=== PATIENT | male | born 1960 | race Caucasian/White ===

== ENCOUNTER 2020-05-21 09:02 | Outpatient (REF) | payer OTHER, SELFPAY | END 2020-05-21 09:03 | disposition home or self-care (01) | LOC: HO.MANLNP 09:02 | PROVIDERS: PCP Internal Medicine; Visit Provider Internal Medicine | DX: Z20.822 Contact with and (suspected) exposure to COVID-19 (principal) | CPT/HCPCS: 36415; U0003 ==

== ENCOUNTER 2020-12-03 13:30 | Outpatient (REF) | payer OTHER, SELFPAY ==
[2020-12-03 18:05] LABS: MANUAL DIFF FLAG NO
[2020-12-03 18:09] LABS: Basophils Percent Auto 0.5 % (0-2); Eosinophils Absolute Auto 0.1 X10*3/uL (0.0-0.4); Eosinophils Percent Auto 0.9 % (0-4); Hematocrit 48.9 % (42-52); Imm Gran Abs Auto 0.02 X10*3/uL (0.00-0.03); Imm Gran Pct Auto 0.3 % (0.0-0.4); Lymphocytes Absolute Auto 1.2 X10*3/uL (1.2-4.9); Lymphocytes Percent Auto 14.5 % (20-40); Mean Corpuscular HGB Conc 32.7 g/dl (31.0-36.0); Mean Corpuscular Hemoglobin 30.7 pg (27.0-33.0); Mean Corpuscular Volume 93.9 fL (80-98); Monocytes Absolute Auto 0.6 X10*3/uL (0.1-1.2); Monocytes Percent Auto 7.7 % (2-11); Neutrophils Percent Auto 76.1 % (45-73); Platelet Count 178 X10*3/uL (160-400); Red Blood Count 5.21 X10*6/uL (4.60-5.80); Red Cell Distribution Width 12.9 % (11.0-16.0); White Blood Count 7.9 X10*3/uL (4.8-10.8)
[2020-12-03 18:24] LABS: Alanine Aminotransferase 33 U/L (0-40); Albumin Level 4.2 g/dL (3.5-5.0); Alkaline Phosphatase 45 U/L (39-117); Anion Gap 11 (12-20); Aspartate Amino Transferase 30 U/L (5-37); Bilirubin Total 0.7 mg/dL (0.0-1.0); Blood Urea Nitrogen 7 mg/dL (9-16); Calcium 9.7 mg/dL (8.4-10.2); Carbon Dioxide 30 mmol/L (22-29); Chloride 102 mmol/L (96-108); Estimated Glomerular Filt Rate > 60; Glucose Random 113 mg/dL (60-115); Potassium 4.4 mmol/L (3.3-5.1); Sodium 139 mmol/L (135-145); Total Protein 6.4 g/dL (6.5-8.0)
[2020-12-03 18:46] LABS: Thyroid Stimulating Hormone 1.66 uIU/mL (0.32-4.0)
[2020-12-03 18:53] LABS: Vitamin B12 775 pg/mL (200-900)
[2020-12-03 19:06] LABS: Erythrocyte Sedimentation Rate 2 MM/HR (0-15)
[2020-12-05 15:12] LABS: Lyme Abs Screen <0.90 index
[2020-12-05 19:05] LABS: EBV-VCA IgG Ab >750.00 U/mL; EBV-VCA IgM Ab <36.00 U/mL
[2020-12-10 01:31] LABS: Testosterone, Total 1715 ng/dL (250-1100)
== END 2020-12-03 13:31 | disposition home or self-care (01) ==
LOC: HO.MANLDS 13:30
PROVIDERS: PCP Internal Medicine; Visit Provider Internal Medicine
DX: R53.83 Other fatigue (principal)
CPT/HCPCS: 36415; 80053; 82607; 84403; 84443; 85025; 85652; 86617; 86618; 86664; 86665

== ENCOUNTER 2021-08-19 11:15 | Outpatient (REF) | payer OTHER, SELFPAY ==
[2021-08-19 12:39] LABS: MANUAL DIFF FLAG NO
[2021-08-19 12:45] LABS: Basophils Absolute Auto 0.1 X10*3/uL (0.0-0.2); Eosinophils Absolute Auto 0.1 X10*3/uL (0.0-0.4); Eosinophils Percent Auto 1.1 % (0-4); Hematocrit 49.6 % (42.0-52.0); Hemoglobin 16.6 g/dl (14.0-18.0); Imm Gran Abs Auto 0.02 X10*3/uL (0.00-0.03); Imm Gran Pct Auto 0.3 % (0.0-0.4); Lymphocytes Absolute Auto 1.4 X10*3/uL (1.2-4.9); Lymphocytes Percent Auto 22.2 % (20-40); Mean Corpuscular HGB Conc 33.5 g/dl (31.0-36.0); Mean Corpuscular Hemoglobin 30.9 pg (27.0-33.0); Mean Corpuscular Volume 92.4 fL (80.0-98.0); Mean Platelet Volume 11.4 fL (9.4-12.4); Monocytes Absolute Auto 0.8 X10*3/uL (0.1-1.2); Monocytes Percent Auto 12.4 % (2-11); Platelet Count 194 X10*3/uL (160-400); Red Blood Count 5.37 X10*6/uL (4.60-5.80); Red Cell Distribution Width 13.5 % (11.0-16.0); White Blood Count 6.3 X10*3/uL (4.8-10.8)
[2021-08-19 13:23] LABS: Erythrocyte Sedimentation Rate 1 MM/HR (0-15)
[2021-08-19 13:27] LABS: C Reactive Protein 0.08 mg/dL (< or = 0.50)
[2021-08-19 13:52] LABS: Vitamin D 25-OH Total 24.6 ng/mL (>30)
== END 2021-08-19 11:16 | disposition home or self-care (01) ==
LOC: HO.MANLDS 11:15
PROVIDERS: PCP Physician Assistant; Visit Provider Physician Assistant
DX: U09.9 Post COVID-19 condition, unspecified (principal)
CPT/HCPCS: 36415; 82306; 85025; 85652; 86140

== ENCOUNTER 2021-10-29 10:23 | Outpatient (REF) | payer OTHER, SELFPAY ==
--- NOTE | ~2021-10-29 | XR_ITS ---
EXAMINATION: XR CHEST CLINICAL INFORMATION: Chest pain COMPARISON: None TECHNIQUE: 2 views of the chest were obtained. FINDINGS: The cardiac and mediastinal contours are normal. The lung volumes are low. There is subsegmental atelectasis at the right lung base. The lungs are otherwise clear. There is no pleural effusion or pneumothorax. There are degenerative changes of the spine. XR/XR chest 2V IMPRESSION: Low lung volumes and subsegmental atelectasis at the right lung base.
== END 2021-10-29 10:24 | disposition home or self-care (01) ==
LOC: HO.XRAY 10:23
PROVIDERS: Visit Provider Physician Assistant
DX: R07.9 Chest pain, unspecified (principal)
CPT/HCPCS: 71046

== ENCOUNTER 2021-11-20 09:12 | Outpatient (REF) | payer OTHER, SELFPAY ==
[2021-11-20 11:22] LABS: Estimated Average Glucose 105 mg/dL; Hemoglobin A1C 149.1034 umol/L; Hemoglobin A1c % 5.3 %
[2021-11-20 11:46] LABS: Alanine Aminotransferase 34 U/L (0-40); Albumin Level 4.1 g/dL (3.5-5.0); Alkaline Phosphatase 42 U/L (39-117); Anion Gap 11 (12-20); Aspartate Amino Transferase 29 U/L (5-37); Bilirubin Total 0.3 mg/dL (0.0-1.0); Blood Urea Nitrogen 9 mg/dL (9-16); Calcium 8.8 mg/dL (8.4-10.2); Carbon Dioxide 29 mmol/L (22-29); Chloride 102 mmol/L (96-108); Cholesterol 130 mg/dL; Estimated Glomerular Filt Rate > 60; Glucose Fasting 107 mg/dL (60-99); HDL Cholesterol 49 mg/dL; LDL Cholesterol Calculated 74 mg/dl; Sodium 138 mmol/L (135-145); Total Protein 6.1 g/dL (6.5-8.0); Triglycerides 39 mg/dL
[2021-11-28 15:17] LABS: Lipoprotein A 16 nmol/L (<75)
== END 2021-11-20 09:13 | disposition home or self-care (01) ==
LOC: HO.MANLDS 09:12
PROVIDERS: Visit Provider Internal Medicine
DX: E78.00 Pure hypercholesterolemia, unspecified (principal); R73.9 Hyperglycemia, unspecified
CPT/HCPCS: 36415; 80053; 80061; 83036; 83695

== ENCOUNTER 2022-05-24 16:03 | Outpatient (REF) | payer OTHER, SELFPAY ==
[2022-05-24 19:01] LABS: Cholesterol 121 mg/dL; HDL Cholesterol 45 mg/dL; LDL Cholesterol Calculated 59 mg/dl; Triglycerides 85 mg/dL
[2022-05-27 05:18] LABS: LDL Cholesterol Direct 65 mg/dL (<100)
[2022-05-31 14:09] LABS: Kappa, Serum 178 mg/dL (176-443); Kappa/Lambda Ratio, Serum 2.83 (1.29-2.55); Lambda, Serum 63 mg/dL (91-240)
[2022-06-01 10:13] LABS: IgA 148 mg/dL (70-320); IgG 774 mg/dL (600-1540); IgM 50 mg/dL (50-300)
== END 2022-05-24 16:04 | disposition home or self-care (01) ==
LOC: HO.MANLDS 16:03
PROVIDERS: Visit Provider Internal Medicine
DX: E78.5 Hyperlipidemia, unspecified (principal)
CPT/HCPCS: 80061; 82784; 83721; 83883; 86334; 86335

== ENCOUNTER 2022-10-12 09:34 | Outpatient (REF) | payer OTHER, SELFPAY ==
[2022-10-12 12:11] LABS: Alanine Aminotransferase 25 U/L (0-40); Alkaline Phosphatase 36 U/L (39-117); Anion Gap 10 (12-20); Aspartate Amino Transferase 27 U/L (5-37); Bilirubin Total 0.8 mg/dL (0.0-1.0); Blood Urea Nitrogen 12 mg/dL (9-16); Calcium 9.5 mg/dL (8.4-10.2); Carbon Dioxide 31 mmol/L (22-29); Chloride 102 mmol/L (96-108); Cholesterol 108 mg/dL; Estimated Glomerular Filt Rate > 60; Glucose Random 89 mg/dL (60-115); HDL Cholesterol 42 mg/dL; LDL Cholesterol Calculated 51 mg/dl; Potassium 4.1 mmol/L (3.3-5.1); Sodium 139 mmol/L (135-145); Triglycerides 75 mg/dL
[2022-10-12 12:12] LABS: Prostate Specific Antigen 1.51 ng/mL (<0.05-4.0)
[2022-10-17 12:39] LABS: Testosterone, Total 998 ng/dL (250-1100)
== END 2022-10-12 09:35 | disposition home or self-care (01) ==
LOC: HO.MANLDS 09:34
PROVIDERS: Visit Provider Internal Medicine
DX: Z12.5 Encounter for screening for malignant neoplasm of prostate (principal); E78.00 Pure hypercholesterolemia, unspecified; N40.1 Benign prostatic hyperplasia with lower urinary tract symptoms; R79.89 Other specified abnormal findings of blood chemistry
CPT/HCPCS: 36415; 80053; 80061; 84153; 84403

== ENCOUNTER 2023-07-11 09:54 | Outpatient (REF) | payer OTHER, SELFPAY ==
[2023-07-11 13:55] LABS: MANUAL DIFF FLAG NO
[2023-07-11 14:05] LABS: Basophils Percent Auto 0.5 % (0-2); Eosinophils Absolute Auto 0.1 X10*3/uL (0.0-0.4); Eosinophils Percent Auto 0.8 % (0-4); Hematocrit 46.3 % (42.0-52.0); Hemoglobin 15.7 g/dl (14.0-18.0); Imm Gran Abs Auto 0.02 X10*3/uL (0.00-0.03); Imm Gran Pct Auto 0.2 % (0.0-0.4); Lymphocytes Absolute Auto 0.8 X10*3/uL (1.2-4.9); Lymphocytes Percent Auto 9.8 % (20-40); Mean Corpuscular HGB Conc 33.9 g/dl (31.0-36.0); Mean Corpuscular Hemoglobin 30.7 pg (27.0-33.0); Mean Corpuscular Volume 90.4 fL (80.0-98.0); Mean Platelet Volume 11.4 fL (9.4-12.4); Monocytes Absolute Auto 0.9 X10*3/uL (0.1-1.2); Monocytes Percent Auto 10.6 % (2-11); Neutrophils Absolute Auto 6.6 x10*3/uL (2.0-8.3); Neutrophils Percent Auto 78.1 % (45-73); Platelet Count 182 X10*3/uL (160-400); Red Blood Count 5.12 X10*6/uL (4.60-5.80); White Blood Count 8.5 X10*3/uL (4.8-10.8)
[2023-07-11 14:22] LABS: Alanine Aminotransferase 25 U/L (0-40); Alkaline Phosphatase 46 U/L (39-117); Anion Gap 11 (12-20); Aspartate Amino Transferase 28 U/L (5-37); Bilirubin Total 0.4 mg/dL (0.0-1.0); Blood Urea Nitrogen 15 mg/dL (9-16); C Reactive Protein 0.42 mg/dL (< or = 0.50); Calcium 9.6 mg/dL (8.4-10.2); Carbon Dioxide 33 mmol/L (22-29); Chloride 98 mmol/L (96-108); Estimated Glomerular Filt Rate > 60; Glucose Random 86 mg/dL (60-115); Potassium 3.7 mmol/L (3.3-5.1); Sodium 138 mmol/L (135-145); Total Protein 6.5 g/dL (6.5-8.0)
[2023-07-11 14:36] LABS: Vitamin D 25-OH Total 54.1 ng/mL (>30)
[2023-07-11 14:38] LABS: Prostate Specific Antigen 1.52 ng/mL (<0.05-4.0); Vitamin B12 1026 pg/mL (200-900)
[2023-07-11 14:39] LABS: Erythrocyte Sedimentation Rate 4 MM/HR (0-15)
[2023-07-16 10:53] LABS: Testosterone, Total 501 ng/dL (250-1100)
== END 2023-07-11 09:55 | disposition home or self-care (01) ==
LOC: HO.MANLDS 09:54
PROVIDERS: Visit Provider Internal Medicine
DX: Z12.5 Encounter for screening for malignant neoplasm of prostate (principal); I10 Essential (primary) hypertension; R79.89 Other specified abnormal findings of blood chemistry; E55.9 Vitamin D deficiency, unspecified; T46.6X5D Adverse effect of antihyperlipidemic and antiarteriosclerotic drugs, subsequent encounter
CPT/HCPCS: 36415; 80053; 82306; 82550; 82607; 84153; 84403; 85025; 85652; 86140

== ENCOUNTER 2023-12-09 12:31 | Outpatient (REF) | payer OTHER, SELFPAY ==
[2023-12-09 17:32] LABS: MANUAL DIFF FLAG NO
[2023-12-09 17:45] LABS: Basophils Absolute Auto 0.1 X10*3/uL (0.0-0.2); Basophils Percent Auto 0.8 % (0-2); Eosinophils Percent Auto 0.2 % (0-4); Hematocrit 48.2 % (42.0-52.0); Hemoglobin 16.5 g/dl (14.0-18.0); Imm Gran Abs Auto 0.02 X10*3/uL (0.00-0.03); Imm Gran Pct Auto 0.3 % (0.0-0.4); Lymphocytes Absolute Auto 0.9 X10*3/uL (1.2-4.9); Lymphocytes Percent Auto 13.7 % (20-40); Mean Corpuscular HGB Conc 34.2 g/dl (31.0-36.0); Mean Corpuscular Hemoglobin 31.7 pg (27.0-33.0); Mean Corpuscular Volume 92.5 fL (80.0-98.0); Monocytes Absolute Auto 0.6 X10*3/uL (0.1-1.2); Monocytes Percent Auto 9.3 % (2-11); Neutrophils Percent Auto 75.7 % (45-73); Platelet Count 198 X10*3/uL (160-400); Red Blood Count 5.21 X10*6/uL (4.60-5.80); Red Cell Distribution Width 13.3 % (11.0-16.0); White Blood Count 6.7 X10*3/uL (4.8-10.8)
[2023-12-09 17:58] LABS: Alanine Aminotransferase 29 U/L (0-40); Albumin Level 4.7 g/dL (3.5-5.0); Alkaline Phosphatase 44 U/L (39-117); Anion Gap 15 (12-20); Aspartate Amino Transferase 38 U/L (5-37); Bilirubin Total 0.8 mg/dL (0.0-1.0); Blood Urea Nitrogen 13 mg/dL (9-16); Calcium 10.6 mg/dL (8.4-10.2); Carbon Dioxide 29 mmol/L (22-29); Chloride 101 mmol/L (96-108); Cholesterol 119 mg/dL (<200); Estimated Glomerular Filt Rate > 60; Glucose Random 77 mg/dL (60-115); HDL Cholesterol 53 mg/dL (>40); LDL Cholesterol Calculated 56 mg/dL (<100); Potassium 3.6 mmol/L (3.3-5.1); Sodium 141 mmol/L (135-145); Total Protein 7.2 g/dL (6.5-8.0); Triglycerides 52 mg/dL (<150)
[2023-12-09 18:07] LABS: Prostate Specific Antigen 1.95 ng/mL (<0.05-4.0)
== END 2023-12-09 12:32 | disposition home or self-care (01) ==
LOC: HO.MANLDS 12:31
PROVIDERS: Visit Provider Internal Medicine
DX: I10 Essential (primary) hypertension (principal); E78.00 Pure hypercholesterolemia, unspecified; E55.9 Vitamin D deficiency, unspecified; N40.1 Benign prostatic hyperplasia with lower urinary tract symptoms; Z12.5 Encounter for screening for malignant neoplasm of prostate
CPT/HCPCS: 36415; 80053; 80061; 82306; 84153; 85025

== ENCOUNTER 2024-05-17 09:21 | Outpatient (REF) | payer OTHER, SELFPAY ==
--- NOTE | ~2024-05-17 | XR_ITS ---
EXAMINATION: Cervical spine and right shoulder. CLINICAL INDICATION: Right shoulder and right neck pain. COMPARISON: None. FINDINGS: Right shoulder 4 views. There is mild reduction in the right AC joint space. Lateral joint spaces normal. There is no visible acute fracture, dislocation or subluxation seen. No soft tissue swelling or calcification seen. Cervical spine 5 views: There is maintained cervical lordosis. Mild loss of C5-6 disc height with posterior spondylosis noted. Mild bilateral narrowing of C5-6 neural foramina from uncovertebral hypertrophic changes are noted. Rest of the vertebral heights, although vertebral alignments and rest of the disc heights are maintained normal. The facet joints are symmetrical and normal. XR/XR cervical spine 5V IMPRESSION: Degenerative C5-6 disc changes, posterior spondylosis and uncovertebral hypertrophic changes resulting in bilateral neural from narrowing at the C5-6 disc level. No visible acute fracture or dislocation seen. Electronically signed by: Leonardo Santiago MD 05/17/2024 10:26 AM [email or web address]
--- NOTE | ~2024-05-17 | XR_ITS ---
EXAMINATION: Cervical spine and right shoulder. CLINICAL INDICATION: Right shoulder and right neck pain. COMPARISON: None. FINDINGS: Right shoulder 4 views. There is mild reduction in the right AC joint space. Lateral joint spaces normal. There is no visible acute fracture, dislocation or subluxation seen. No soft tissue swelling or calcification seen. Cervical spine 5 views: There is maintained cervical lordosis. Mild loss of C5-6 disc height with posterior spondylosis noted. Mild bilateral narrowing of C5-6 neural foramina from uncovertebral hypertrophic changes are noted. Rest of the vertebral heights, although vertebral alignments and rest of the disc heights are maintained normal. The facet joints are symmetrical and normal. XR/XR shoulder RT min 2V IMPRESSION: Degenerative C5-6 disc changes, posterior spondylosis and uncovertebral hypertrophic changes resulting in bilateral neural from narrowing at the C5-6 disc level. No visible acute fracture or dislocation seen. Electronically signed by: Leonardo Santiago MD 05/17/2024 10:26 AM [email or web address]
--- OUTSIDE RECORDS SUMMARY | 2024-05-17 09:26 | XMS_ITS ---
Author Name [facility] Organization Unknown History of Medication Use Medication Directions Dispensed Refills Start Date End Date Stat rosuvastatin (CRESTOR) 10 MG tablet Take 1 tablet (10 mg total) by mouth daily. 03/21/2022 aborted albuterol (PROVENTIL HFA; VENTOLIN HFA) 108 (90 Base) MCG/ACT inhaler Inhale 2 puffs 4 times daily (every 6 hours) as needed for wheezing. 03/21/2022 active tamsulosin (FLOMAX) 0.4 MG capsule Take 1 capsule (0.4 mg total) by mouth. 03/21/2022 active metoPROLOL SUCCINATE (TOPROL-XL) 25 MG 24 hr tablet Take 1 tablet (25 mg total) by mouth daily. 03/21/2022 aborted cloNIDine (CATAPRES) 0.1 MG tablet Take 1 tablet (0.1 mg total) by mouth 2 (two) times a day. 12/16/2022 active EPINEPHrine 0.3 mg/0.3 mL IJ auto-injection 05/25/2022 active naproxen (NAPROSYN) 500 MG tablet Take 1 tablet (500 mg total) by mouth 2 (two) times a day with meals. 03/21/2022 active triamterene-hydrochlo rothiazide (DYAZIDE) 37.5-25 MG per capsule Take 1 capsule by mouth daily. 05/25/2022 aborted testosterone (TESTIM) 50 mg/5 g (1%) gel APPLY 2 PACKETS ONTO THE SKIN ONCE DAILY 03/21/2022 active triamterene-hydroCHLO ROthiazide (DYAZIDE) 37.5-25 MG per capsule TAKE 1 CAPSULE BY MOUTH EVERY DAY 05/25/2022 active aspirin enteric coated (aspirin enteric coated) 81 MG EC tablet Take 1 tablet (81 mg total) by mouth daily. 03/21/2022 active furosemide (LASIX) 20 MG tablet Take 1 tablet (20 mg total) by mouth daily as needed (swelling). 05/25/2022 active fluticasone (FloVENT HFA) 110 mcg/puff inhaler Inhale 1 puff 2 (two) times a day. 03/21/2022 active amLODIPine (NORVASC) 5 MG tablet TAKE 1 TABLET(5 MG) BY MOUTH DAILY 03/21/2022 aborted OMEprazole (PriLOSEC) 20 MG capsule 03/21/2022 active Problems Problem Status Onset Date Problem Type Date of Resoluti on Source Hyperlipidemia active 2022-05-[address] [address] Hypertension active 2022-05-24 ProblemAct [facility] History of COVID-19 active 2021-08-17 [facility]Act [facility]
== END 2024-05-17 09:22 | disposition home or self-care (01) ==
LOC: HO.XRAY 09:21
PROVIDERS: PCP Physician Assistant; Visit Provider Physician Assistant
DX: M25.511 Pain in right shoulder (principal); M54.2 Cervicalgia
CPT/HCPCS: 72050; 73030

== ENCOUNTER → 2024-05-17 09:30 | Outpatient (BNV) | payer OTHER, SELFPAY | PROVIDERS: PCP Physician Assistant; Visit Provider Radiology Diagnostic Radiology | DX: M25.511 Pain in right shoulder (principal); M54.2 Cervicalgia | CPT/HCPCS: 72050; 73030 ==